=== PATIENT | male | born 2000 | race Two or more races ===

== ENCOUNTER 2024-08-10 23:40 | Emergency (ER) | payer OTHER ==
[~2024-08-10] VITALS: Ht 167.6 cm; Wt 58.0 kg
[2024-08-10 23:51] VITALS: O2SAT 99
[2024-08-11] MEDS: ACETAMINOPHEN 500MG TABLET PO ONE (00:39)
[2024-08-11 01:27] VITALS: BP 117/63; PULSE 80; RESP 20; TEMP 37.2; O2SAT 100
== END 2024-08-11 01:29 | disposition home or self-care (01) ==
LOC: ER 23:53
DX: B34.9 Viral infection, unspecified (principal)
CPT/HCPCS: 99282